=== PATIENT | male | born 1990 | race Caucasian/White ===

== ENCOUNTER 2016-08-21 09:47 | Day surgery (SDC) | payer OTHER ==
[2016-08-16 11:19] VITALS: BMI 26.6
[2016-08-21] MEDS ORDERED: PROPOFOL 20 ML ONE (11:18)
[2016-08-21 11:39] VITALS: TEMP 97.8
[2016-08-21 12:07] VITALS: BP 110/64; PULSE 64
--- NOTE | 2016-08-22 16:19 | PATH ---
Surgical Pathology Report Patient Name: BJ RODRIGUEZ [facility]. Rec. #: [id number] /Age/Gender: 1990 (Age: 26) / M Account: [id number] Location: [facility]-ENDOSCOPY Taken: 08/21/2016 Received: 08/21/2016 Reported: 08/22/2016 Physicians: Sylvester Simmons M.D. Specimen(s) Received A: BX DUODENUM B: BX ANTRUM Clinical History GERD Abdominal pain, rule out celiac, gastritis Final Diagnosis A. DUODENUM, BIOPSY: DUODENAL MUCOSA WITH NO PATHOLOGIC FINDINGS. Note: Features suggestive of celiac disease are not identified in this biopsy. B. ANTRUM, BIOPSY: MODERATE CHRONIC GASTRITIS. IMMUNOSTAIN IS NEGATIVE FOR H. PYLORI ORGANISMS. Electronically Signed Jory Aguilera M.D. Gross Description A. Received in formalin, labeled "duodenum" are 3 clark, irregular portions of soft tissue ranging from 0.1-0.3 cm. in greatest dimension. The specimens are submitted in toto in one cassette. B. Received in formalin, labeled "antrum" are 2 clark, irregular portions of soft tissue measuring 0.2 and 0.4 cm. in greatest dimension. The specimens are submitted in toto in one cassette. 08/21/201608/21/2016
== END 2016-08-21 12:08 | disposition home or self-care (01) ==
LOC: FASU-ENDO 09:47
PROVIDERS: ATTEND Internal Medicine Gastroenterology
PROC: 0DB98ZX Excision of Duodenum, Via Natural or Artificial Opening Endoscopic, Diagnostic (ICD-10-PCS; principal; 2016-08-21 11:16)
PROC: 0DB68ZX Excision of Stomach, Via Natural or Artificial Opening Endoscopic, Diagnostic (ICD-10-PCS; 2016-08-21 11:16)
DX: R10.9 Unspecified abdominal pain (principal)
CPT/HCPCS: 88305-TC; 88342-TC